=== PATIENT | female | born 1950 | race Caucasian/White ===

== ENCOUNTER 2017-10-24 07:33 | Outpatient (CLI) | payer OTHER ==
[~2017-10-24 07:33] MED LIST: ULTRACET PO
== END 2017-10-24 07:42 | disposition home or self-care (01) ==
LOC: NUCLEAR 07:33
DX: R14.0 Abdominal distension (gaseous) (principal); R11.2 Nausea with vomiting, unspecified; R14.1 Gas pain; K56.609 Unspecified intestinal obstruction, unspecified as to partial versus complete obstruction
CPT/HCPCS: 78264; A9541

== ENCOUNTER 2017-12-19 08:30 | Inpatient (IN) | payer OTHER ==
[~2017-12-19] VITALS: Ht 162.6 cm; Wt 65.3 kg
[2017-12-19] MEDS ORDERED: PLAVIX75 MG PO (14:09)
[2017-12-19] MEDS ORDERED: LEVO-T25 MCG PO (14:09)
[2017-12-19] MEDS ORDERED: DIGOXIN125 MCG PO (14:10)
[2017-12-19] MEDS ORDERED: CLONAZEPAM2 MG PO (14:11)
[2017-12-19] MEDS ORDERED: ZANTAC300 MG PO (14:11)
[2017-12-19] MEDS ORDERED: SINGULAIR10 MG PO (14:11)
[2017-12-31] MEDS ORDERED: PANTOPRAZOLE SO40 MG PO (10:20)
[2017-12-31] MEDS ORDERED: Intestinex CAP PO (10:20)
[2017-12-31] MEDS ORDERED: OXYC1TAB9 PO (10:20)
[2017-12-31] MEDS ORDERED: HYOSCYAMINE0.125 M1 SL (10:20)
== END 2017-12-31 15:52 | disposition home or self-care (01) | DRG 330 ==
LOC: SURG 12-27 06:46 → O/R 12-27 06:46 → SURH 12-27 08:30 → SURG 12-27 18:54
PROVIDERS: Surgery
PROC: 0JX80ZZ Transfer Abdomen Subcutaneous Tissue and Fascia, Open Approach (ICD-10-PCS; 2017-12-27)
PROC: 0DTF4ZZ Resection of Right Large Intestine, Percutaneous Endoscopic Approach (ICD-10-PCS; principal; 2017-12-27 10:15)
PROC: 0WQF0ZZ Repair Abdominal Wall, Open Approach (ICD-10-PCS; 2017-12-27 10:15)
DX: D12.2 Benign neoplasm of ascending colon (principal); K43.0 Incisional hernia with obstruction, without gangrene; K56.600 Partial intestinal obstruction, unspecified as to cause; K56.0 Paralytic ileus; K91.89 Other postprocedural complications and disorders of digestive system; K42.0 Umbilical hernia with obstruction, without gangrene; E03.8 Other specified hypothyroidism; F41.8 Other specified anxiety disorders; D64.89 Other specified anemias; I49.8 Other specified cardiac arrhythmias

== ENCOUNTER 2018-04-25 18:57 | Emergency (ER) | payer OTHER ==
[~2018-04-25] VITALS: Ht 162.6 cm; Wt 63.0 kg
[~2018-04-25 18:57] MED LIST changes: +CLONAZEPAM2 MG PO; +DIGOXIN125 MCG PO; +HYOSCYAMINE0.125 M1 SL; +Intestinex CAP PO; +LEVO-T25 MCG PO; +OXYC1TAB9 PO; +PANTOPRAZOLE SO40 MG PO; +PLAVIX75 MG PO; +SINGULAIR10 MG PO; +ZANTAC300 MG PO
== END 2018-04-25 20:51 | disposition home or self-care (01) ==
LOC: ER 18:57
DX: S30.1XXA Contusion of abdominal wall, initial encounter (principal); W18.39XA Other fall on same level, initial encounter; Y93.89 Activity, other specified; Y92.098 Other place in other non-institutional residence as the place of occurrence of the external cause; Y99.8 Other external cause status